=== PATIENT | female | born 1985 | race American Indian/Alaskan Native ===

== ENCOUNTER 2018-12-07 08:21 | Emergency (ER) | payer OTHER ==
[2018-12-07 08:35] VITALS: BP 150/99
[2018-12-07] MEDS ORDERED: TORADOL IM ONE (09:38)
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
[2018-12-07 10:18] LABS: HCG Qualitative,Urine Negative (Negative)
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
== END 2018-12-07 12:24 | disposition home or self-care (01) ==
LOC: ED 08:21
DX: S16.1XXA Strain of muscle, fascia and tendon at neck level, initial encounter (principal); S39.012A Strain of muscle, fascia and tendon of lower back, initial encounter; I10 Essential (primary) hypertension; Z98.890 Other specified postprocedural states; V49.49XA Driver injured in collision with other motor vehicles in traffic accident, initial encounter; Y93.89 Activity, other specified; Y92.410 Unspecified street and highway as the place of occurrence of the external cause; Y99.8 Other external cause status
CPT/HCPCS: 72040; 72070; 72100; 81025; 96372; 99283; J1885